=== PATIENT | male | born 1975 | race Caucasian/White ===

== ENCOUNTER 2023-05-24 13:34 | Outpatient (REF) | payer OTHER, SELFPAY ==
[2023-05-25 14:50] LABS: Campylobacter PCR Negative (Negative); Salmonella PCR Negative (Negative); Shiga Toxin PCR Negative (Negative); Shigella/Enteroinvasive Ecoli Negative (Negative)
[2023-05-26 14:37] LABS: Specimen Description STOOL
== END 2023-05-24 13:35 | disposition home or self-care (01) ==
LOC: LBN 13:34
PROVIDERS: PCP Family Medicine; Visit Provider Family Medicine
DX: K52.9 Noninfective gastroenteritis and colitis, unspecified (principal); R19.7 Diarrhea, unspecified
CPT/HCPCS: 87329; 87505; 87177

== ENCOUNTER → 2023-09-28 01:37 | Outpatient (CLI) | payer OTHER, SELFPAY ==
--- NOTE | 2023-09-28 06:15 | DI.MRI_ITS ---
Exam(s) MR LUMBAR SPINE WO EXAM: MR LUMBAR SPINE WO CLINICAL HISTORY: right low back pain,m54.41. TECHNIQUE: Multiplanar multisequence MRI of the Lumbar spine was performed. COMPARISON: No exams were available for comparison FINDINGS: Five lumbar vertebrae are presumed. Conus medullaris is at normal level. There is no evidence of conus mass nor subjacent clumping of in trathecal nerve roots to suggest arachnoiditis. The distal thecal sac appears unremarkable.There is no evidence of Tarlov intrasacral cysts nor other significant findings within the sacral canal Bones:There are no fractures nor ominous osseous lesions in the lumbar vertebral bodies and visualize d sacrum. With respect to the individual levels... T12-L1: Unremarkable L1-2: Normal disc height and signal. No disc herniation nor central canal stenosis.No foraminal steno sis L2-3: Normal disc height. No disc herniation nor central canal stenosis.No foraminal stenosis.No face t arthropathy. L3-4: Normal disc height and signal. No disc herniation or canal stenosis. No foraminal stenosis. No significant facet arthropathy. L4-5: Normal disc height. There is a lateral left-posterolateral left disc protrusion which extends [place] iorly 6 mm and is approximately 12 mm wide.This occupies the left lateral recess andextends into the floor of the exiting left neural foramen but only causing mild ipsilateral foraminal stenosis. There is also mild central subligamentous disc bulging. Central canal dimensions are lower normal. Foramina l narrowing on the opposite-right side. No significant facet arthropathy evident at this level. L5-S1: Preserved disc height. There are Modic type 1 sub endplate marrow edema changes at this level. There is a central-posterolateral left disc herniation at this level which extends posteriorly 6 mil limeters and is approximately 15 mm wide. This indents the anterior and left side of the thecal sac. Extends slightly into the floor of the exiting left neural foramen but without significant foraminal stenosis on either side at this level. Osseous central canal dimensions are within normal limits. No facet arthropathy. Soft tissues: paraspinal soft tissues appear unremarkable. IMPRESSION: 1. There are central-left sided disc herniations at both L4-5 and L5-S1 levels as described above. Ce ntral canal dimensions are lower normal at both levels although the thecal sac is somewhat indented b y the disc herniations at both levels. Also mass effect on the left lateral recess. No prominent fora deborah stenosis on either side at these levels. DATA REPOSITORY:
== END ==
PROVIDERS: PCP Family Medicine; Visit Provider Family Medicine
DX: G89.29 Other chronic pain (principal); M54.41 Lumbago with sciatica, right side; M51.26 Other intervertebral disc displacement, lumbar region; M51.27 Other intervertebral disc displacement, lumbosacral region
CPT/HCPCS: 72148

== ENCOUNTER 2024-04-25 08:16 | Day surgery (SDC) | payer OTHER, SELFPAY ==
[2024-04-25 08:36] VITALS: BP 123/80; PULSE 42; RESP 16; TEMP 36.5; O2SAT 98
[2024-04-25] MEDS: Lactated Ringers 1,000 ML 80 ML IV (08:39)
--- NOTE | 2024-04-25 08:56 | W.ANESPRE ---
General Info Date of Service Date Performed: 04/25/24 Height: 5 ft 7 in Weight: 66.6 kg Body Mass Index (BMI): 23.0 Surgical Procedure: Operation Date: 04/25/24 09:20 Proposed Procedure Side Surgeon johanna Abreu, Meds Allergies and Home Medications Allergies Allergy/AdvReac Type Severity Reaction Status Date / Time No Known Allergies Allergy Verified 04/25/24 08:25 Home Medication ?Medication ?Instructions ?Recorded ibuprofen 200 mg tablet 200 mg PO Q6H PRN 11/03/23 Current Visit Medications: Current Medications Generic Name Dose Route Start Last Admin Trade Name Freq PRN Reason Stop Dose Admin Ringer's Solution 1,000 mls @ 80 mls/hr 04/25/24 06:00 04/25/24 08:39 IV 04/25/24 23:59 80 mls/hr INFUSION ROBEL Administration IV Miscellaneous Supplies 1 each 04/25/24 06:00 Iv Access IV 04/25/24 23:59 DIRECTED ROBEL Sodium Chloride 0 ml 04/25/24 06:00 Normal Saline Flush 10 Ml Syr IV 04/25/24 23:59 PRN PRN Sodium Chloride 0 ml 04/25/24 06:00 Normal Saline 10 Ml Vial IJ 04/25/24 23:59 DIRECTED PRN Sterile Water 0 ml 04/25/24 06:00 Water,Injection,Sterile 10 Ml Vial IJ 04/25/24 23:59 DIRECTED PRN PFSH Active Problems Active Problems: Problem Status Onset Code Encounter for screening colonoscopy Acute Z12.11 Multiple nevi Acute D22.9 Hx of adenomatous colonic polyps Acute Z86.010 Lumbar disc herniation Acute M51.26 Family history of Hayden's esophagus Acute Z83.79 Vegetarian diet Chronic Z78.9 Medical History Medical History Back pain chronic, now more intermittent Bloating had GI evaluation; improved with avoiding gluten Tobacco Smoking/Tobacco Use Status: Never Passive smoking exposure: No Second hand exposure: No Alcohol Alcohol Intake: current Alcohol intake frequency: a few times a week Alcohol type: beer Substance Use Substance use: Occasionally Substance use type: marijuana Vital Signs and Lab Results Vital Signs Most Recent Vital Signs in EMR: Most Recent Vital Signs Temp Pulse Resp BP Pulse Ox 36.5 C 42 L 16 123/80 98 04/25/24 08:36 04/25/24 08:36 04/25/24 08:36 04/25/24 08:36 04/25/24 08:36 Lab Results Blood Type / Crossmatch: No Data to Display Complete Blood Count: No Data to Display Complete Metabolic Panel: No Data to Display Liver Function Panel: No Data to Display Coagulation Panel: No Data to Display Cardiac Panel: No Data to Display Arterial Blood Gas: No Data to Display Venous Blood Gas: No Data to Display Pancreas Panel: No Data to Display Thyroid Panel: No Data to Display Infectious Disease: No Data to Display Blood Cultures: No Data to Display Toxicology Panel: No Data to Display Anesthesia Assessment and Plan Anesthesia History Personal History: No History of Anesthesia Complications Family History: No Family History of Anesthesia Complications Exercise Tolerance Exercise Tolerance: Metabolic Equivalents>4 Pertinent Negatives Pertinent Negatives: No Symptoms of GERD Cardiac & Pulmonary Exam Cardiac Exam: Normal S1/S2 Heart Sounds Pulmonary Exam: Clear Bilateral Breath Sounds Implantable Cardiac Device Does patient have a Pacemaker or an ICD?: No Airway Exam Known Difficult Airway: No Mallampati Class: 2 Mouth Opening: Normal (> 3cm) Thyromental Distance: Greater than 3 cm Neck Range of Motion: Full ROM Neck Circumference: Normal Teeth Condition: Normal Dentition ASA Classification ASA Score: ASA 2 Emergency Case?: No NPO Status NPO Status: NPO Clears >2 hours, Solids >8 hours Anesthesia Plan Resuscitation Status: Full Code Anesthesia Technique: General Anesthesia Airway Planned: Natural Airway Monitors Used: Standard Monitors
[2024-04-25 08:57] VITALS: BMI 23.0
--- NOTE | 2024-04-25 10:00 | BOWEL_PTH ---
PATIENT: Anselmo Burton LOC: [facility] U#:[id number] AGE/SX: 48/M ROOM: RE04/25/[address]: Carlita Abreu : 1975 BED: DIS: 04/25/2024 SPEC #: [id number] RECD: 04/25/24 12:55 STATUS: YUDI REQ #: [id number] SUDHA: 04/25/24 10:[address]: Carlita Abreu DEPT: Surgical Specimen RECD BY: Sallie Barrios ENTERED: 04/25/24 12:57 SP TYPE: Bowel OTHR DR: Cora Pat Tissues: 1 - BIOPSY BOWEL 2 - BIOPSY BOWEL 3 - BIOPSY BOWEL 4 - BIOPSY BOWEL Procedures: GROSS AND MICRO LEVEL 4 Comments: [id number]
[2024-04-25 10:20] VITALS: BP 104/63; PULSE 42; RESP 16; TEMP 36.6; O2SAT 97
--- NOTE | 2024-04-25 10:20 | COLE_ITS ---
Date of service: 04/25/24 Time of Service: 10:20 Colonoscopy Report Date of procedure: 04/25/24 Pre-op diagnosis general: hx of polyps/CRC screening Post-op diagnosis procedure note: other (polyps ) Surgeon: Carlita Abreu Anesthesia Type: General:No Airway Estimated blood loss (mL): 1 Pathology: other Complications: None Disposition: same day Prep: Miralax/Dulcolax Retraction Time: 12 Procedure Description: After informed consent was obtained, explaining risks of the procedure, including but not limits to: bleeding, infections, complications of anesthesia, perforations (which may require antibiotics and /or surgery and stay in the hospital), and abdominal pain/cramping. The patient was taken to the procedure room and placed in a left decubitous position. Monitors were applied and a time out was done. The patients name, date of , procedure, allergies to medications and metal in their body was reviewed. The patient was then sedated. Once sedated and comfortable a rectal exam was done. External exam was normal. Internal exam revealed a normal sphincter tone and no palpable masses. The prostate w/out masses The previously lubricated Olympus scope was then introduced (see RN notes for scope number) and retrofelexed. No internal hemorrhoids were identified. The scope was then advanced to the cecum without difficulty. The TI and appendiceal orifice were identified. The scope was then slowly retracted over 10 minutes back into the rectum. Polyps: A flat, .75cm polyp was found at cm. This was removed with a cold snare. All of the specimen was retrieved. This will be sent to pathology. There is no bleeding noted from the polypectomy site. . Diverticula: no. The mucosa is pink and healthy w/ a normal vascular pattern. The scope was removed, and the patient was woken up and taken back to Same day surgery in stable condition. The patient tolerated the procedure well and there were no immediate complications. Follow up: The patient should follow up in 5-7 years, unless they develop changes in bowel habits or other new gastrointestinal complaints. [place] Bowel Prep [place] Bowel Prep Right Colon: 3 Left Colon: 3 Transverse Colon: 3 Total Score: 9
--- NOTE | 2024-04-25 10:24 | PDOC.DSDIS_ITS ---
Date of service: 04/25/24 Time of Service: 10:24 Discharge Plan Disposition Patient Disposition: Home Condition: Good Discharge Details Reason For Visit: colon scope Attending Provider: Carlita Abreu Primary Care Provider: Cora Pat Home Meds and New Rx's Prescriptions: No Action ibuprofen 200 mg tablet 200 mg PO Q6H PRN Discharge Instructions Additional Instructions: DSU Colonoscopy Post- Op Instructions Instructions for Everyone who is given Anesthesia: For your safety, please do the following for the next twenty-four (24) hours: *Do Not operate a motor vehicle (car, truck, motorcycle, etc.) *Do Not drink alcoholic beverages or use any recreational drugs for the first 24 hours or while taking pain medications. The medications in your body may have a reaction that can be dangerous. *Do Not make any important decisions or sign any important papers. Findings: X 1 polyp Otherwise normal Follow up: My office will send you a letter in 2 to 3 weeks time of the results of the pathology and when we want you to repeat your colonoscopy, most likely in 5 to 7 years time. No aspirin or ibuprofen for 5 days. Tylenol is okay. 1. No lifting over 20 pounds or strenuous activity for the first 24 hours after your procedure. After 24 hours there are no restrictions on your activity but you may feel fatigued for a few days. 2. After you arrive home you may have a light meal and return to your normal diet as you can tolerate it without feeling sick to your stomach. 3. You may have a bloated, gaseous feeling in your belly (abdomen) after a colonoscopy. Passing gas and belching will help. Walking or lying down on your left side with your knees flexed may relieve the discomfort. Call the office at [phone] (Office) or [phone] (Hospital) right away if you notice any of the following: a.Vomiting of blood or ?coffee ground stools?. b.Rectal bleeding 1Tbsp, blood clots or continuous bleeding. c.Severe belly (abdominal) pain. d.A hard distended belly (abdomen) and an inability to pass gas. 4. Please don?t expect to have a normal BM (bowel movement) for 2-3 days after your procedure. 5. If there are questions regarding the findings of your procedure, please contact your doctor 6. If you are unable to contact your doctor with a problem, contact the hospital at [phone]. 7. Continue all your regular medications unless directed otherwise. I understand the above instructions and have no questions. Signature of Patient or Adult Escort Name of Responsible Adult Escort Signature of Nurse Date/Time Activity:: see above Diet:: see above Discharge Orders Discharge Orders: Discharge Order (Routine); Ordered 04/25/24 Ordered By: Carlita Abreu DS: Diagnosis Discharge Diagnosis (1) Adenomatous colon polyp: Status: Acute Asessment and Plan: The patient is seen and examined after their colonoscopy.? The patient has been able to pass gas.? They are not having abdominal pain.? They have been able to tolerate liquids and a snack.? They do not have any nausea or vomiting.? They are not having any chest pain or shortness of breath.??? They are not having any rectal bleeding. Their vital signs have been stable-see nursing notes. We discussed findings during their colonoscopy, and any biopsies that were done/polyps that were removed. The patient will be sent a letter with any biopsy results, and when to repeat the colonoscopy.-see discharge instructions. Patient was given explicit instructions to follow-up regarding colonoscopy-refer to discharge instructions.? We reviewed resumption of medications. Patient verbalized understanding and discharged in stable and satisfactory condition- See nursing notes.
--- NOTE | 2024-04-25 10:24 | W.ANESPOSTOP ---
Postoperative Evaluation Date, Time and Location Date Performed: 04/25/24 Time Performed: 10:24 Patient Location: Day Surgery Unit Vital Signs Most Recent Imported Vital Signs: Most Recent Vital Signs Temp Pulse Resp BP Pulse Ox 36.6 C 42 L 16 104/63 97 04/25/24 10:20 04/25/24 10:20 04/25/24 10:20 04/25/24 10:20 04/25/24 10:20 Pain Score Most Recent Pain Score: Most Recent Pain Score Pain Level 0 04/25/24 10:20 Assessment Mental Status: Awake (Alert & Oriented to Patient Baseline) Airway and Respiratory Function: Patent airway with normal (patient baseline) respiratory exam Cardiovascular Function: Hemodynamically Stable Hydration Status: Adequately Hydrated Nausea & Vomiting: No Nausea or Vomiting Pain: Pt. Denies Any Pain Peripheral Nerve Block: Patient did not receive a nerve block
[2024-04-25 10:51] VITALS: BP 110/81; PULSE 47; RESP 16; TEMP 36.6; O2SAT 98
== END 2024-04-25 11:04 | disposition home or self-care (01) ==
PROVIDERS: PCP Family Medicine; Visit Provider Surgery
PROC: 0DJD8ZZ Inspection of Lower Intestinal Tract, Via Natural or Artificial Opening Endoscopic (ICD-10-PCS; CPT 45378; principal; 2024-04-25 09:15)
DX: K63.5 Polyp of colon (principal); Z12.11 Encounter for screening for malignant neoplasm of colon
CPT/HCPCS: 45385; 88305; J2001; J2704

== ENCOUNTER 2024-11-27 12:53 | Outpatient (REF) | payer SELFPAY ==
[2024-11-27 11:23] LABS: Sperm(Post-Vasectomy) Absent
== END 2024-11-27 12:54 | disposition home or self-care (01) ==
LOC: LBN 12:53
PROVIDERS: PCP Family Medicine; Visit Provider Urology
DX: Z98.52 Vasectomy status (principal)
CPT/HCPCS: 89321